=== PATIENT | female | born 1965 | race African-American/Black ===

== ENCOUNTER 2021-08-09 20:48 | Inpatient (IN) | payer MEDICAID, OTHER ==
[~2021-08-09] VITALS: Ht 167.6 cm; Wt 76.9 kg
[~2021-08-09 20:48] MED LIST: VERA240C2 PO
[2021-08-09] MEDS ORDERED: MORPHINE SULFATE 4 MG/ML CPJ (NOT FOR IM USE) IV STA (23:07)
[2021-08-09] MEDS ORDERED: FAMOTIDINE 20MG/2ML VIAL IV STA (23:07)
[2021-08-09] MEDS ORDERED: ONDANSETRON HCL 4MG/2ML INJ IV STA (23:07)
[2021-08-09] MEDS ORDERED: SODIUM CHLORIDE 0.9% 1,000 ML IV ONE (23:15)
[2021-08-10 00:21] LABS: HEMATOCRIT. 34.3 % (36.0-48.0); HEMOGLOBIN. 11.5 g/dL (12.0-16.0); MEAN CORPUSCULAR HEMOGLOBIN 27.4 pg (28.0-32.0); MEAN CORPUSCULAR VOLUME 81.6 fL (81.0-99.0); MEAN PLATELET VOLUME 7.4 fl (7.4-10.4); PLATELET 516 x1000/uL (130-400); RED BLOOD CELL COUNT 4.21 mill/uL (4.2-5.4); RED CELL DISTRIBUTION WIDTH 14.2 % (11.6-14.6)
[2021-08-10 00:27] LABS: CLARITY URINE CLEAR (CLEAR); COLOR URINE YELLOW (YELLOW); KETONES URINE 3+ (NEGATIVE); LEUKOCYTE ESTERASE URINE NEGATIVE (NEGATIVE); NITRITE URINE NEGATIVE (NEGATIVE); OCCULT BLOOD URINE NEGATIVE (NEGATIVE); PH URINE >=9.0 (4.5-8.0); PROTEIN URINE TRACE (NEGATIVE); SPECIFIC GRAVITY URINE 1.017 (1.005-1.030); UROBILINOGEN URINE 0.2 E.U./dL (0.2-1.0)
[2021-08-10 00:38] LABS: CHLORIDE 105 mEq/L (98-107)
[2021-08-10 00:41] LABS: *AMPHETAMINES SCREEN URINE NEGATIVE (NEGATIVE); *BENZODIAZEPINES SCREEN URINE NEGATIVE (NEGATIVE); *COCAINE SCREEN URINE NEGATIVE (NEGATIVE); OPIATES URINE SCREEN NEGATIVE (NEGATIVE)
[2021-08-10 00:42] LABS: ETHANOL BLOOD < 10 mg/dL
[2021-08-10 00:42] LABS: CANNABINOID URINE SCREEN PRESUMTIVE POSITIVE (NEGATIVE); PHENCYCLIDINE URINE SCREEN NEGATIVE (NEGATIVE)
[2021-08-10 00:52] LABS: HCG SCREEN NEGATIVE
[2021-08-10] MEDS ORDERED: SODIUM CHLORIDE 0.9% 1000ML BAG (SEPSIS BOLUS) IV ONE (02:00)
[2021-08-10] MEDS ORDERED: VANCOMYCIN 1G PREMIX 200 ML IV ONE (02:00)
[2021-08-10] MEDS ORDERED: PIPERACILLIN/TAZ 3.375G PREMIX 50 ML IV NR (02:00)
[2021-08-10] MEDS ORDERED: VANCOMYCIN 1GM PMX (XELLIA) 200 ML IV NR (02:15)
[2021-08-10] MEDS ORDERED: KCL 20MEQ/100ML PREMIX 100 ML IV NR (02:15)
[2021-08-10] MEDS ORDERED: MORPHINE SULFATE 4 MG/ML CPJ (NOT FOR IM USE) IV ONE (04:15)
[2021-08-10 05:15] LABS: PLATELET ESTIMATE INCREASED
[2021-08-10 09:05] VITALS: BP 131/78
[2021-08-10] MEDS ORDERED: AMLO10TA80 PO (09:49)
[2021-08-10] MEDS ORDERED: LOSA25TA26 PO (09:49)
[2021-08-10] MEDS ORDERED: NALOXONE HCL 0.4MG/ML VIAL IV PRN (10:00)
[2021-08-10] MEDS: MORPHINE SULFATE 2 MG/ML CPJ (NOT FOR IM USE) IV PRN ×4 (10:24→22:11)
[2021-08-10 12:00] VITALS: BP 137/65
[2021-08-10] MEDS ORDERED: ACETAMINOPHEN 650MG SUPP PR PRN (13:45)
[2021-08-10] MEDS ORDERED: IPRATROPIUM/ALBUTEROL 0.5-3(2.5)MG/3ML NEB NEB PRN (13:45)
[2021-08-10] MEDS ORDERED: ONDANSETRON HCL 4MG/2ML INJ IV PRN (13:45)
[2021-08-10] MEDS ORDERED: PIPERACILLIN/TAZOBACTAM 3.375 G in DEXTROSE 5% WATER 50 ML IV SCH (13:45)
[2021-08-10] MEDS ORDERED: LORAZEPAM 2MG/ML CPJ IV PRN (13:45)
[2021-08-10] MEDS ORDERED: DIPHENHYDRAMINE 50MG/ML VIAL IV PRN (13:45)
[2021-08-10] MEDS: FAMOTIDINE 20MG/2ML VIAL IV SCH (14:19)
[2021-08-10] MEDS: DEXT 5%/0.45% NACL 1000ML 1,000 ML IV SCH (14:20)
[2021-08-10 14:34] LABS: HEMATOCRIT. 32.1 % (36.0-48.0); HEMOGLOBIN. 10.5 g/dL (12.0-16.0); MEAN CORPUSCULAR HEMOGLOBIN 26.8 pg (28.0-32.0); MEAN CORPUSCULAR VOLUME 81.5 fL (81.0-99.0); MEAN PLATELET VOLUME 7.2 fl (7.4-10.4); PLATELET 474 x1000/uL (130-400); RED BLOOD CELL COUNT 3.93 mill/uL (4.2-5.4); RED CELL DISTRIBUTION WIDTH 14.7 % (11.6-14.6)
[2021-08-10 14:42] LABS: INR 1.1; PROTHROMBIN TIME 11.4 sec (9.6-11.0)
[2021-08-10 14:45] LABS: CHLORIDE 111 mEq/L (98-107)
[2021-08-10 14:56] LABS: CREATINE KINASE 57 IU/L (26-192); CREATINE KINASE MB FRACTION < 1.0 ng/mL (0.5-3.6)
[2021-08-10] MEDS ORDERED: PIPERACILLIN/TAZOBACTAM 3.375G in DEXT 5% WATER 50ML IV SCH (15:00)
[2021-08-10 15:23] LABS: PLATELET ESTIMATE INCREASED
[2021-08-10 16:00] VITALS: BP 148/81
[2021-08-10] MEDS: KCL 20MEQ/100ML PREMIX 100 ML IV SCH ×2 (18:05→22:00)
[2021-08-10 20:00] VITALS: BP 136/75
[2021-08-10] MEDS: PIPERACILLIN/TAZOBACTAM 3.375 G in DEXTROSE 5% WATER 50 ML IV SCH (22:15)
[2021-08-11] VITALS: BP 133/87
[2021-08-11] MEDS: DEXT 5%/0.45% NACL 1000ML 1,000 ML IV SCH ×3 (00:12→19:38)
[2021-08-11 00:52] LABS: CREATINE KINASE 45 IU/L (26-192)
[2021-08-11 00:53] LABS: CREATINE KINASE MB FRACTION < 1.0 ng/mL (0.5-3.6)
[2021-08-11] MEDS: MORPHINE SULFATE 2 MG/ML CPJ (NOT FOR IM USE) IV PRN ×6 (02:00→22:16)
[2021-08-11 04:00] VITALS: BP 154/81
[2021-08-11] MEDS: PIPERACILLIN/TAZOBACTAM 3.375 G in DEXTROSE 5% WATER 50 ML IV SCH ×3 (06:09→22:16)
[2021-08-11 07:23] LABS: HEMATOCRIT. 32.3 % (36.0-48.0); HEMOGLOBIN. 10.8 g/dL (12.0-16.0); MEAN CORPUSCULAR HEMOGLOBIN 27.2 pg (28.0-32.0); MEAN CORPUSCULAR VOLUME 81.6 fL (81.0-99.0); MEAN PLATELET VOLUME 7.5 fl (7.4-10.4); PLATELET 460 x1000/uL (130-400); RED BLOOD CELL COUNT 3.96 mill/uL (4.2-5.4); RED CELL DISTRIBUTION WIDTH 14.6 % (11.6-14.6)
[2021-08-11 07:42] LABS: CHLORIDE 110 mEq/L (98-107)
[2021-08-11 07:58] LABS: LDL CHOLESTEROL 63 mg/dL (5-100)
[2021-08-11 07:59] LABS: HDL CHOLESTEROL 83 mg/dL (40-59)
[2021-08-11 08:00] VITALS: BP 131/70
[2021-08-11] MEDS: FAMOTIDINE 20MG/2ML VIAL IV SCH (08:52)
[2021-08-11 12:00] VITALS: BP 132/72
[2021-08-11 13:27] LABS: PLATELET ESTIMATE SLIGHTLY INCREASED
[2021-08-11 16:00] VITALS: BP 130/69
[2021-08-11 20:00] VITALS: BP 131/74
[2021-08-12] VITALS (7 sets, daily range): BP systolic 94–137; BP diastolic 58–78
[2021-08-12] MEDS: MORPHINE SULFATE 2 MG/ML CPJ (NOT FOR IM USE) IV PRN ×5 (02:22→19:55)
[2021-08-12] MEDS: PIPERACILLIN/TAZOBACTAM 3.375 G in DEXTROSE 5% WATER 50 ML IV SCH ×3 (05:10→21:37)
[2021-08-12] MEDS: DEXT 5%/0.45% NACL 1000ML 1,000 ML IV SCH ×2 (05:12→15:42)
[2021-08-12 08:07] LABS: HEMATOCRIT. 30.6 % (36.0-48.0); HEMOGLOBIN. 10.3 g/dL (12.0-16.0); MEAN CORPUSCULAR HEMOGLOBIN 27.2 pg (28.0-32.0); MEAN PLATELET VOLUME 7.3 fl (7.4-10.4); PLATELET 413 x1000/uL (130-400); RED BLOOD CELL COUNT 3.78 mill/uL (4.2-5.4); RED CELL DISTRIBUTION WIDTH 14.5 % (11.6-14.6)
[2021-08-12 08:28] LABS: CHLORIDE 104 mEq/L (98-107)
[2021-08-12] MEDS: FAMOTIDINE 20MG/2ML VIAL IV SCH (08:58)
[2021-08-12 13:12] LABS: PLATELET ESTIMATE NORMAL
[2021-08-12] MEDS ORDERED: PHENYLEPH/PRAMOXIN/GLYCR/PET RECTAL CREAM 26GM PR SCH (18:00)
[2021-08-12 22:47] LABS: *BARBITURATES SCREEN URINE NEGATIVE (NEGATIVE); METHADONE URINE SCREEN NEGATIVE (NEGATIVE)
[2021-08-12] MEDS ORDERED: DIATR MEGLU/DIATRIZOATE SOLN 30ML PO SCH (23:30)
[2021-08-13] MEDS: MORPHINE SULFATE 2 MG/ML CPJ (NOT FOR IM USE) IV PRN ×5 (00:28→21:26)
[2021-08-13 04:00] VITALS: BP 104/71
[2021-08-13] MEDS: DEXT 5%/0.45% NACL 1000ML 1,000 ML IV SCH ×3 (04:49→21:27)
[2021-08-13] MEDS: PIPERACILLIN/TAZOBACTAM 3.375 G in DEXTROSE 5% WATER 50 ML IV SCH ×3 (06:27→21:27)
[2021-08-13 08:00] VITALS: BP 142/81
[2021-08-13] MEDS: FAMOTIDINE 20MG/2ML VIAL IV SCH (09:27)
[2021-08-13 09:50] LABS: BASOPHILS % 0.8 % (0.0-2.0); EOSINOPHILS % 7.4 % (0.0-5.0); HEMATOCRIT. 30.4 % (36.0-48.0); HEMOGLOBIN. 10.2 g/dL (12.0-16.0); LYMPHOCYTES % 11.8 % (20.0-50.0); MEAN CORPUSCULAR VOLUME 80.6 fL (81.0-99.0); MEAN PLATELET VOLUME 7.4 fl (7.4-10.4); PLATELET 422 x1000/uL (130-400); RED BLOOD CELL COUNT 3.77 mill/uL (4.2-5.4); RED CELL DISTRIBUTION WIDTH 14.5 % (11.6-14.6)
[2021-08-13 10:20] LABS: CHLORIDE 105 mEq/L (98-107)
[2021-08-13 12:00] VITALS: BP 127/65
[2021-08-13] MEDS ORDERED: IOHEXOL-300 100 ML BOTTLE ONE (12:06)
[2021-08-13] MEDS ORDERED: POTASSIUM CHLORIDE INJ 40 MEQ in DEXT 5% WATER 500 ML IV ONE (13:30)
[2021-08-13 16:00] VITALS: BP 124/79
[2021-08-13] MEDS ORDERED: KCL 20MEQ/100ML X 2 FOR TOTAL KCL 40MEQ/200ML IV SCH (16:00)
[2021-08-13] MEDS ORDERED: POTASSIUM CHLORIDE 20MEQ TABLET SR PO NR (16:15)
[2021-08-13] MEDS: PHENYLEPH/PRAMOXIN/GLYCR/PET RECTAL CREAM 26GM PR SCH ×2 (17:26→23:44)
[2021-08-13 20:00] VITALS: BP 124/68
[2021-08-14] MEDS: MORPHINE SULFATE 2 MG/ML CPJ (NOT FOR IM USE) IV PRN ×6 (01:27→21:31)
[2021-08-14 04:00] VITALS: BP 147/70
[2021-08-14] MEDS: PIPERACILLIN/TAZOBACTAM 3.375 G in DEXTROSE 5% WATER 50 ML IV SCH ×3 (05:38→21:29)
[2021-08-14] MEDS: PHENYLEPH/PRAMOXIN/GLYCR/PET RECTAL CREAM 26GM PR SCH ×3 (05:39→18:30)
[2021-08-14] MEDS: DEXT 5%/0.45% NACL 1000ML 1,000 ML IV SCH ×2 (07:45→18:29)
[2021-08-14 08:00] VITALS: BP_SYST 138; BP_SYST 154; BP_DIAS 65; BP_DIAS 97
[2021-08-14] MEDS: FAMOTIDINE 20MG/2ML VIAL IV SCH (08:45)
[2021-08-14 10:55] LABS: BASOPHILS % 0.7 % (0.0-2.0); EOSINOPHILS % 5.2 % (0.0-5.0); HEMATOCRIT. 31.7 % (36.0-48.0); HEMOGLOBIN. 10.3 g/dL (12.0-16.0); LYMPHOCYTES % 13.9 % (20.0-50.0); MEAN CORPUSCULAR HEMOGLOBIN 26.4 pg (28.0-32.0); MEAN CORPUSCULAR VOLUME 81.3 fL (81.0-99.0); MONOCYTES % 13.3 % (2.0-8.0); NEUTROPHILS % 66.9 % (40.0-76.0); PLATELET 461 x1000/uL (130-400); RED CELL DISTRIBUTION WIDTH 14.4 % (11.6-14.6)
[2021-08-14 11:45] LABS: CHLORIDE 107 mEq/L (98-107)
[2021-08-14 12:00] VITALS: BP 138/97
[2021-08-14 16:00] VITALS: BP 160/72
[2021-08-14 20:00] VITALS: BP 150/83
[2021-08-14 21:08] VITALS: BP 150/83
[2021-08-15] MEDS: PHENYLEPH/PRAMOXIN/GLYCR/PET RECTAL CREAM 26GM PR SCH ×3 (00:36→12:00)
[2021-08-15 01:31] VITALS: BP 131/70
[2021-08-15] MEDS: MORPHINE SULFATE 2 MG/ML CPJ (NOT FOR IM USE) IV PRN ×3 (01:31→09:58)
[2021-08-15] MEDS: DEXT 5%/0.45% NACL 1000ML 1,000 ML IV SCH (04:05)
[2021-08-15] MEDS: PIPERACILLIN/TAZOBACTAM 3.375 G in DEXTROSE 5% WATER 50 ML IV SCH (05:33)
[2021-08-15 07:14] LABS: BASOPHILS % 0.9 % (0.0-2.0); EOSINOPHILS % 6.4 % (0.0-5.0); HEMATOCRIT. 30.4 % (36.0-48.0); HEMOGLOBIN. 10.1 g/dL (12.0-16.0); LYMPHOCYTES % 20.4 % (20.0-50.0); MEAN CORPUSCULAR HEMOGLOBIN 26.6 pg (28.0-32.0); MEAN CORPUSCULAR VOLUME 80.1 fL (81.0-99.0); MEAN PLATELET VOLUME 7.5 fl (7.4-10.4); NEUTROPHILS % 58.3 % (40.0-76.0); PLATELET 449 x1000/uL (130-400); RED BLOOD CELL COUNT 3.79 mill/uL (4.2-5.4); RED CELL DISTRIBUTION WIDTH 14.9 % (11.6-14.6)
[2021-08-15 07:29] LABS: CHLORIDE 107 mEq/L (98-107)
[2021-08-15 09:58] VITALS: BP 143/75
[2021-08-15] MEDS: FAMOTIDINE 20MG/2ML VIAL IV SCH (10:49)
[2021-08-15] MEDS ORDERED: MORPHINE SULFATE 2 MG/ML CPJ (NOT FOR IM USE) IV PRN (14:15)
[2021-08-15] MEDS ORDERED: NALOXONE HCL 0.4MG/ML VIAL IV PRN (14:30)
== END 2021-08-15 17:58 | disposition home or self-care (01) | DRG 720 ==
LOC: ER 20:48 → MICUSO 08-10 04:24 → 6WST 08-10 09:47 → 6EST 08-12 16:45
PROVIDERS: ADMIT Internal Medicine; ATTEND Internal Medicine
DX: A41.9 Sepsis, unspecified organism (principal); E87.2 Acidosis; E87.1 Hypo-osmolality and hyponatremia; I10 Essential (primary) hypertension; E87.6 Hypokalemia; K57.20 Diverticulitis of large intestine with perforation and abscess without bleeding; D64.9 Anemia, unspecified; K76.0 Fatty (change of) liver, not elsewhere classified; E66.9 Obesity, unspecified; R73.9 Hyperglycemia, unspecified; Z20.822 Contact with and (suspected) exposure to COVID-19; Z79.899 Other long term (current) drug therapy; Z68.27 Body mass index [BMI] 27.0-27.9, adult; Z87.19 Personal history of other diseases of the digestive system
CPT/HCPCS: 36415; 71045; 74018; 74176; 74177; 80048; 80053; 80061; 80305; 80320; 81003; 82550; 82553; 83036; 83605; 83735; 84439; 84443; 84484; 84703; 85025; 86850; 86900; 87426; 93005; 93306; 93970; 99291; J2270; J2405; J2543; J3370; J3480; J3490; J7030; J7060; Q9963; Q9967; G0480

== ENCOUNTER 2025-01-22 15:41 | Emergency (ER) | payer MEDICAID ==
[~2025-01-22] VITALS: Ht 167.6 cm; Wt 86.0 kg
[~2025-01-22 15:41] MED LIST changes: +AMLO10TA80 PO; +LOSA25TA26 PO; -VERA240C2 PO
[2025-01-22 15:53] VITALS: TEMP 37.2; O2SAT 100
[2025-01-22 16:31] LABS: BASOPHILS % 1.3 % (0.0-2.0); EOSINOPHILS % 1.5 % (0.0-5.0); HEMATOCRIT. 40.2 % (36.0-48.0); HEMOGLOBIN. 13.4 g/dL (12.0-16.0); LYMPHOCYTES % 26.4 % (20.0-50.0); MEAN PLATELET VOLUME 7.9 fl (7.4-10.4); MONOCYTES % 9.0 % (2.0-8.0); NEUTROPHILS % 61.8 % (40.0-76.0); PLATELET 357 x1000/uL (130-400); RED BLOOD CELL COUNT 4.35 mill/uL (4.2-5.4); RED CELL DISTRIBUTION WIDTH 15.7 % (11.6-14.6)
[2025-01-22 16:46] LABS: CREATININE 0.8 mg/dL (0.6-1.0); UREA NITROGEN BLOOD 8 mg/dL (9-23)
[2025-01-22 18:01] LABS: ASPARTATE AMINOTRANSFERASE 29 IU/L (<34); BILIRUBIN DIRECT 0.2 mg/dL (<=3.0)
[2025-01-22 18:02] LABS: BILIRUBIN TOTAL 0.9 mg/dL (0.1-1.0); PROTEIN TOTAL 7.6 g/dL (6.0-8.3)
[2025-01-22] MEDS: SODIUM CHLORIDE 0.9% 1,000 ML IV ONE (18:16)
[2025-01-22] MEDS: ONDANSETRON HCL 4MG/2ML INJ IV ONE ×2 (18:16→20:17)
[2025-01-22] MEDS ORDERED: OMEP40CA20 MT (19:54)
[2025-01-22] MEDS ORDERED: ONDA-239 PO (19:54)
[2025-01-22] MEDS: PANTOPRAZOLE SODIUM 40 MG/VIAL IV ONE (20:17)
[2025-01-22 21:52] VITALS: BP 201/89; PULSE 80; RESP 16; O2SAT 100
== END 2025-01-22 21:53 | disposition home or self-care (01) ==
LOC: ER 15:41
DX: R11.2 Nausea with vomiting, unspecified (principal); I10 Essential (primary) hypertension; Z79.899 Other long term (current) drug therapy
CPT/HCPCS: 80076; 80048; 83690; 85025; 36415; 96361; 96365; 96375; 96376; 99284; J2405; J2470; J7030; Z7610 ×3